=== PATIENT | female | born 2000 | race Two or more races ===

== ENCOUNTER 2024-04-13 04:36 | Emergency (ER) | payer OTHER ==
[~2024-04-13] VITALS: Ht 157.5 cm; Wt 44.2 kg
--- NOTE | 2024-04-13 05:30 | ED.PDOC ---
GI ASSESSMENT HPI Comments 24-year-old female who came to ER for nausea and vomiting. Patient states 2 days ago she developed nasal congestion, followed by episodes of nausea vomiting. Patient states she can not keep anything in. Patient also complaining of epigastric abdominal pain. Persistence of nausea and vomiting and inability to tolerate any oral intake prompted patient to come to the ER. Patient states she was diagnosed before with gastritis and cannabinoid hyper emesis syndrome. Patient admits that she still smokes marijuana. Patient denies being . Chief Complaint: Nausea/Vomiting Time Seen by MD: 05:29 Reviewed Notes: Nurses Notes Allergies: Coded Allergies: NO KNOWN ALLERGIES (Unverified , 04/13/24) Information Source: Patient Mode of Arrival: Ambulatory Timing: Days Duration: Intermittent Prehospital treatment: None Quality: Cramping, Sharp Vomitus: Watery Stool: Normal Severity: Moderate Recent: None Recent Hx of: Ulcer Disease Pain Location: Epigastric Modifying Factors: Nothing Associated sign and symptoms: Nausea, Vomiting, Abdominal Pain Past Medical History Past Medical History (Other): Gastritis, cannabinoid hyperemesis syndrome Surgical History: Denies all surgeries [employer]ILITATOR History: Denies all [employer]ATE[employer]ITATOR Hx Family History Family History: Reviewed,noncontributory to illness Social History Smoker: Non-Smoker Alcohol: Denies ETOH Use Drugs: Marijuana Lives In: Home Constitutional: denies: chills, diaphoresis, fatigue, fever, malaise, sweats, weakness, others EENTM: reports: nose congestion; denies: blurred vision, double vision, ear bleeding, ear discharge, ear drainage, ear pain, ear ringing, eye pain, eye redness, hearing loss, mouth pain, mouth swelling, nasal discharge, nose bleeding, nose pain, photophobia, tearing, throat pain, throat swelling, voice changes, others Respiratory: denies: cough, hemoptysis, orthopnea, SOB at rest, shortness of breath, SOB with excertion, stridor, wheezing, others Cardiovascular: denies: chest pain, dizzy spells, diaphoresis, Dyspnea on exertion, edema, irregular heart beat, left arm pain, lightheadedness, palpitations, PND, syncope, others Gastrointestinal: reports: abdominal pain, nausea, vomiting; denies: abdomen distended, blood streaked bowels, constipated, diarrhea, dysphagia, difficulty swallowing, hematemesis, melena, poor appetite, poor fluid intake, rectal bleeding, rectal pain, others Genitourinary: denies: abnormal vagina bleeding, burning, dyspareunia, dysuria, flank pain, frequency, hematuria, incontinence, pain, , vagina discharge, urgency, others Neurological: denies: dizziness, fainting, headache, left sided numbness, left sided weakness, numbness, paresthesia, pre-existing deficit, right sided numbness, right sided weakness, seizure, speech problems, tingling, tremors, weakness, others Musculoskeletal: denies: back pain, gout, joint pain, joint swelling, muscle pain, muscle stiffness, neck pain, others Integumetry: denies: bruises, change in color, change in hair/nails, dryness, laceration, lesions, lumps, rash, wounds, others Allergic/Immunocompromised: denies: Difficulty Healing, Frequent Infections, Hives, Itching, others Hematologic/Lymphatic: denies: anemia, blood clots, easy bleeding, easy bruising, swollen glands, others Endocrine: denies: excessive hunger, excessive sweating, excessive thirst, excessive urination, flushing, intolerance to cold, intolerance to heat, unexplained weight gain, unexplained weight loss, others Psychiatric: denies: anxiety, bipolar disorder, depression, hopeless, panic disorder, schizophrenia, sleepless, suicidal, others Physical Exam General Appearance: Moderate Distress, Normal HEENT: Normal ENT Inspection, Pharynx Normal, TMs Normal Neck: Full Range of Motion, Non-Tender, Normal, Normal Inspection Respiratory: Chest Non-Tender, Lungs Clear, No Accessory Muscle Use, No Respiratory Distress, Normal Breath Sounds Cardiovascular: No Edema, No JVD, No Murmur, No Gallop, Normal Peripheral Pulses, Regular Rate/Rhythm Breast Exam: Deferred Gastrointestinal: Epigastric, No Organomegaly, No Pulsatile Mass, Normal Bowel Sounds, Soft, Tenderness Genitalia: Deferred Pelvic: Deferred Rectal: Deferred Extremities: No calf tenderness, Normal capillary refill, Normal inspection, Normal range of motion, Non-tender, No pedal edema Musculoskeletal : Apperance: Normal Neurologic: Alert, 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 Was a procedure done?: No GI differential Dx Differential Diagnosis: Diverticular disease, Esophagitis, Gastritis/PUD, Gastroenteritis, UTI, Urolithiasis, Dehydration X-Ray, Labs, Meds, VS Vital Signs Date Time Temp Pulse Resp B/P (MAP) Pulse Ox O2 Delivery O2 Flow Rate FiO2 04/13/24 05:50 99.2 107 16 125/79 (94) 98 99.2 04/13/24 05:50 107 16 98 Room Air* 0 21 04/13/24 05:00 98.4 112 17 123/79 (94) 97 Lab Test 04/13/24 05:46 04/13/24 05:00 Range/Units White Blood Count 12.3 H 4.4-10.8 10^3/uL Red Blood Count 4.98 4.0-5.20 10^6/uL Hemoglobin 15.9 12.2-16.2 g/dL Hematocrit 46.2 H 36.0-46.0 % Mean Corpuscular Volume 92.8 80.0-100.0 fL Mean Corpuscular Hemoglobin 31.8 28.0-32.0 pg Mean Corpuscular Hemoglobin Concent 34.3 32.0-36.0 g/dL Red Cell Distribution Width 12.9 11.8-14.3 % Platelet Count 204 140-450 10^3/uL Mean Platelet Volume 9.6 6.9-10.8 fL Neutrophils (%) (Auto) 91.7 H 37.0-80.0 % Lymphocytes (%) (Auto) 3.2 L 10.0-50.0 % Monocytes (%) (Auto) 4.8 0.0-12.0 % Eosinophils (%) (Auto) 0.0 0.0-7.0 % Basophils (%) (Auto) 0.3 0.0-2.0 % Neutrophils # (Auto) 11.3 H 1.6-8.6 10 ^3/uL Lymphocytes # (Auto) 0.4 0.4-5.4 10 ^3/uL Monocytes # (Auto) 0.6 0-1.3 10 ^3/uL Eosinophils # (Auto) 0 0-0.8 10 ^3/uL Basophils # (Auto) 0 0-0.2 10 ^3/uL Nucleated Red Blood Cells 0.0 % Sodium Level 139 136-145 mmol/L Potassium Level 3.7 3.5-5.1 mmol/L Chloride Level 107 98-107 mmol/L Carbon Dioxide Level 24 20-31 mmol/L Anion Gap 8 5-15 Blood Urea Nitrogen 7 L 9-23 mg/dL Creatinine 0.69 0.550-1.02 mg/dL Glomerular Filtration Rate Calc 126 >90 mL/min BUN/Creatinine Ratio 10.1 10.0-20.0 Serum Glucose 95 74-106 mg/dL Calcium Level 10.1 8.7-10.4 mg/dL Urine Color Yellow Yellow Urine Clarity Turbid H Clear Urine pH 6.0 5.0-9.0 Urine Specific [place] 1.034 1.001-1.035 Urine Protein 1+ H Negative Urine Ketones 4+ H Negative Urine Blood 3+ H Negative /uL Urine Nitrite Negative Negative Urine Bilirubin Negative Negative Urine Urobilinogen 4 H Negative mg/dL Urine Leukocyte Esterase Negative Negative /uL Urine RBC 90 0 - 4 /hpf Urine WBC 4 0 - 5 /hpf Urine Squamous Epithelial Cells Mod <5 /hpf Urine Bacteria None seen None Seen /hpf Urine Mucus Few None Seen Urine Glucose Normal Normal mg/dL Urine Test Negative Negative Current Medications Medications (Trade) Dose Ordered Sig/Neida Route Start Time Stop Time Status Last Admin Sodium Chloride 1,000 ml @ 1,000 mls/hr Q1H ONCE IV 04/13/24 05:15 04/13/24 06:14 DC 04/13/24 05:48 Ondansetron HCl (Zofran) 4 mg ONCE ONCE IV 04/13/24 05:15 04/13/24 05:16 DC 04/13/24 05:47 Famotidine (Pepcid Injection) 20 mg ONCE ONCE IV 04/13/24 05:15 04/13/24 05:16 DC 04/13/24 05:47 Patient alert pain Unable to tolerate any form of diet. Vitals stable. Answering all questions. Urinalysis shows ketones. Establish intravenous access. Was given fluids. Was given Zofran. WBC elevated. Was given Rocephin. Continues to have nausea. Reviewed her history. Explained to the patient. Continue cardiac monitoring. Time of 1ST Reevaluation: 05:27 Reevaluation 1ST: Unchanged Patient Education/Counseling: Diagnosis, Treatment Family Education/Counseling: No Family Present Departure 1 Departure Time of Disposition: 07:40 Impression: Primary Impression: Gastroenteritis Disposition: ADMITTED INPATIENT Admit to: Med Surg Condition: Guarded Critical Care Note Critical Care Time?: No Stability Stability form required: No Heart Score Heart Score: Heart Score Response (Comments) Value History N/A 0 EKG N/A 0 Age N/A 0 Risk Factors N/A 0 Troponin N/A 0 Total 0 I personally scribed for DARRON GO MD ([email or web address]) on 04/13/24 at 05:30. Electronically submitted by Jeremy Vidales ([email or web address]). DARRON GO MD Apr 13, 2024 05:30 WILLIAMS GATES MD Apr 13, 2024 07:40
[2024-04-13 05:40] LABS: Urine Bacteria None Seen /hpf (None Seen)
[2024-04-13] MEDS: FAMOTIDINE (10MG/ML) 2ML VL IV ONE (05:47)
[2024-04-13] MEDS: ONDANSETRON HCL 4 MG/2 ML VIAL IV ONE (05:47)
[2024-04-13] MEDS: SODIUM CHLORIDE 0.9% 1,000 ML IV ONE ×3 (05:48→07:59)
[2024-04-13 05:50] VITALS: PULSE 107; RESP 16; TEMP 99.2; O2SAT 98
[2024-04-13 06:01] LABS: Urine Blood 3+ /uL (Negative); Urine Clarity Turbid (Clear); Urine Color Yellow (Yellow); Urine Mucus FEW (None Seen); Urine Protein, UAD 1+ (Negative); Urine Specific Gravity 1.034 (1.001-1.035); Urine Urobilinogen 4 mg/dL (Negative); Urine WBC 4 /hpf (0 - 5)
[2024-04-13 06:09] LABS: Basophils # (auto) 0 10 ^3/uL (0-0.2); Basophils % (auto) 0.3 % (0.0-2.0); Eosinophils # (auto) 0 10 ^3/uL (0-0.8); Hematocrit 46.2 % (36.0-46.0); Hemoglobin 15.9 g/dL (12.2-16.2); Lymphocytes # (auto) 0.4 10 ^3/uL (0.4-5.4); Lymphocytes % (auto) 3.2 % (10.0-50.0); Mean Corpuscular Hemoglobin 31.8 pg (28.0-32.0); Mean Corpuscular Hgb Conc. 34.3 g/dL (32.0-36.0); Mean Corpuscular Volume 92.8 fL (80.0-100.0); Monocytes # (auto) 0.6 10 ^3/uL (0-1.3); Monocytes % (auto) 4.8 % (0.0-12.0); Neutrophils # (auto) 11.3 10 ^3/uL (1.6-8.6); Neutrophils % (auto) 91.7 % (37.0-80.0); Platelet Count (auto) 204 10^3/uL (140-450); Red Blood Cells 4.98 10^6/uL (4.0-5.20); Red Cell Distribution Width 12.9 % (11.8-14.3); White Blood Cell 12.3 10^3/uL (4.4-10.8)
[2024-04-13 06:21] LABS: Anion Gap 8 (5-15); Carbon Dioxide 24 mmol/L (20-31); Chloride 107 mmol/L (98-107); Potassium 3.7 mmol/L (3.5-5.1); Sodium 139 mmol/L (136-145)
[2024-04-13 06:22] LABS: Calcium 10.1 mg/dL (8.7-10.4)
[2024-04-13 06:27] LABS: BUN/Creatinine Ratio 10.1 (10.0-20.0); Blood Urea Nitrogen 7 mg/dL (9-23); Glucose 95 mg/dL (74-106)
[2024-04-13] MEDS: cefTRIAXone 1GM/50ML D5W 50 ML IV ONE (07:55)
[2024-04-13] MEDS ORDERED: ONDANSETRON HCL 4 MG/2 ML VIAL IV PRN (09:00)
[2024-04-13] MEDS ORDERED: MAALOX PLUS or MAALOX 30 ML PO PRN (09:15)
[2024-04-13] MEDS ORDERED: TEMAZEPAM 15 MG CAP PO PRN (09:15)
[2024-04-13] MEDS ORDERED: DOCUSATE SOD 100 MG CAP PO PRN (09:15)
[2024-04-13] MEDS ORDERED: ACETAMINOPHEN 325 MG TAB PO PRN (09:15)
[2024-04-13] MEDS ORDERED: LORazepam 0.5 MG TAB PO PRN (09:15)
[2024-04-13] MEDS: D5W/SOD CHL 0.45% 1,000 ML IV SCH (09:15)
[2024-04-13] MEDS: predniSONE 20 MG TAB PO SCH (09:26)
--- NOTE | 2024-04-13 09:44 | DVHINCON2 ---
Date Seen: Apr 13, 2024 History of Present Illness 24 yo female with Nausea Vomiting that was initially intractable patient was palced for admission for the management of acute suspected infectious gastritis patient is very concerned about work and states that she is feeling better and would prefer to be discharged if she can. As of this morning patient is able to tolerate po intake the recommendation at this time is for the patient to be discharged home as per request with ABX po Flagyl and Po prednisone and Po Zofran for the acute management of gastroenteritis with a recommendation to fo llow up with pcp in 1-3 days for any worsening change of symptoms. Currently patient in no acute distress hemodynamically stable does have elevated white count and recommended to have these labs repeated with pcp to confirm improvement and resolution if symptoms do not improve recommend retuning to the ED as required. Past Medical History Hyper emesis syndrome former marijuana usage Allergies: Coded Allergies: NO KNOWN ALLERGIES (Unverified , 04/13/24) Current Medications Current Medications Medications (Trade) Dose Ordered Sig/Neida Route PRN Reason Start Time Stop Time Status Last Admin Ceftriaxone Sodium 50 ml @ 100 mls/hr DAILY IV 04/14/24 10:00 Ondansetron HCl (Zofran) 4 mg Q4HPRN PRN IV NAUSEA OR VOMITING 04/13/24 09:00 Famotidine (Pepcid Injection) 20 mg DAILY IV 04/14/24 10:00 Prednisone 20 mg DAILY PO 04/13/24 10:00 Dextrose/Sodium Chloride 1,000 ml @ 30 mls/hr Q24H IV 04/13/24 09:15 Lorazepam (Ativan Tablet) 0.5 mg Q6HP PRN PO ANXIETY 04/13/24 09:15 UNV Al Hydrox/Mg Hydrox/Simethicone (Maalox Plus) 30 ml Q6HP PRN PO FOR STOMACH DISTRESS 04/13/24 09:15 UNV Docusate Sodium (Colace Capsule) 100 mg BIDPRN PRN PO FOR CONSTIPATION 04/13/24 09:15 UNV Acetaminophen (Tylenol Tablet) 650 mg Q6HP PRN PO PAIN SCALE 1-3 OR TEMP>100.4 04/13/24 09:15 UNV Temazepam (Restoril) 15 mg QHSP PRN PO FOR INSOMNIA 04/13/24 09:15 UNV Review of Systems All systems and symptoms negative except mentioned GI: positive for n/v but stated to have improved as per patient Vital Signs Vital Signs Date Time Temp Pulse Resp B/P (MAP) Pulse Ox O2 Delivery O2 Flow Rate FiO2 04/13/24 07:49 88 16 122/74 (90) 98 04/13/24 05:50 99.2 99.2 04/13/24 05:50 Room Air* 0 21 Physical Exam General [id number] HEENT: atnc , perrla GI: mild ttp all quadrants cardio: rrr s1 s2 normal range lungs: ctabl extremities: no acute changes negative for edema Neuro: mild weakness, mood stable normal cognition Labs/Diagnostic Data Labs Test 04/13/24 05:46 04/13/24 05:00 Range/Units White Blood Count 12.3 H 4.4-10.8 10^3/uL Red Blood Count 4.98 4.0-5.20 10^6/uL Hemoglobin 15.9 12.2-16.2 g/dL Hematocrit 46.2 H 36.0-46.0 % Mean Corpuscular Volume 92.8 80.0-100.0 fL Mean Corpuscular Hemoglobin 31.8 28.0-32.0 pg Mean Corpuscular Hemoglobin Concent 34.3 32.0-36.0 g/dL Red Cell Distribution Width 12.9 11.8-14.3 % Platelet Count 204 140-450 10^3/uL Mean Platelet Volume 9.6 6.9-10.8 fL Neutrophils (%) (Auto) 91.7 H 37.0-80.0 % Lymphocytes (%) (Auto) 3.2 L 10.0-50.0 % Monocytes (%) (Auto) 4.8 0.0-12.0 % Eosinophils (%) (Auto) 0.0 0.0-7.0 % Basophils (%) (Auto) 0.3 0.0-2.0 % Neutrophils # (Auto) 11.3 H 1.6-8.6 10 ^3/uL Lymphocytes # (Auto) 0.4 0.4-5.4 10 ^3/uL Monocytes # (Auto) 0.6 0-1.3 10 ^3/uL Eosinophils # (Auto) 0 0-0.8 10 ^3/uL Basophils # (Auto) 0 0-0.2 10 ^3/uL Nucleated Red Blood Cells 0.0 % Sodium Level 139 136-145 mmol/L Potassium Level 3.7 3.5-5.1 mmol/L Chloride Level 107 98-107 mmol/L Carbon Dioxide Level 24 20-31 mmol/L Anion Gap 8 5-15 Blood Urea Nitrogen 7 L 9-23 mg/dL Creatinine 0.69 0.550-1.02 mg/dL Glomerular Filtration Rate Calc 126 >90 mL/min BUN/Creatinine Ratio 10.1 10.0-20.0 Serum Glucose 95 74-106 mg/dL Calcium Level 10.1 8.7-10.4 mg/dL Urine Color Yellow Yellow Urine Clarity Turbid H Clear Urine pH 6.0 5.0-9.0 Urine Specific [place] 1.034 1.001-1.035 Urine Protein 1+ H Negative Urine Ketones 4+ H Negative Urine Blood 3+ H Negative /uL Urine Nitrite Negative Negative Urine Bilirubin Negative Negative Urine Urobilinogen 4 H Negative mg/dL Urine Leukocyte Esterase Negative Negative /uL Urine RBC 90 0 - 4 /hpf Urine WBC 4 0 - 5 /hpf Urine Squamous Epithelial Cells Mod <5 /hpf Urine Bacteria None seen None Seen /hpf Urine Mucus Few None Seen Urine Glucose Normal Normal mg/dL Urine Test Negative Negative Assessment planned for discharge as per request Problems(with codes): (1) Gastroenteritis Plan/Recommendation Discharge home from ED patient states feeling improved prefers not to be admitt ed recommended discharge flagly 500mg bid x 10 days prednisone 20 md daily x5days zofram 4mg po q6h prn famotidine 20mg daily x30 tabs thank you for the consult Plan discussed with: Patient Date of Service: Apr 13, 2024 Billing Provider: JAME QUEZADA MD Common Visit Codes: CONSULT ONLY JAME QUEZADA MD Apr 13, 2024 09:44
[2024-04-13 10:05] VITALS: BP 108/69; PULSE 73; RESP 16; O2SAT 98
[2024-04-13] MEDS ORDERED: METR-344 PO (11:14)
[2024-04-13] MEDS ORDERED: PRED20TA2 PO (11:14)
[2024-04-13] MEDS ORDERED: FAMO20TA10 PO (11:14)
[2024-04-13] MEDS ORDERED: ZOFR4T PO (11:14)
[2024-04-14] MEDS ORDERED: cefTRIAXone 1GM/50ML D5W 50 ML IV SCH (10:00)
[2024-04-14] MEDS ORDERED: FAMOTIDINE (10MG/ML) 2ML VL IV SCH (10:00)
== END 2024-04-13 11:26 | disposition home or self-care (01) ==
LOC: ER 04:36 → UNDOADMIN 09:09 → OVERFLOW 09:09 → ER 11:26
DX: K52.9 Noninfective gastroenteritis and colitis, unspecified (principal); F15.90 Other stimulant use, unspecified, uncomplicated
CPT/HCPCS: 36415; 80048; 81001; 81025; 85025; 96361; 96365; 96375; 99284; J0696; J2405; J3490; J7030; J7512; G0378